=== PATIENT | female | born 1935 | race Caucasian/White ===

== ENCOUNTER 2017-08-21 13:34 | Emergency (ER) | payer MEDICARE ==
[~2017-08-21] VITALS: Ht 160 cm; Wt 78.8 kg
[~2017-08-21 13:34] MED LIST: ACET-822 PO; ADVA100A INH; AMBI5TAB PO; BUPR150XL PO; CALC200C CHEW; FEMA2.5T PO; GLIP5TAB8 PO; GLUC500C6 PO; GLUCTAB PO; HYDR-3583 PO; IBUP-232 PO; LOTE20TA PO; LYRI200C PO; MIRA50TA PO; MULT-65 PO; OMEGCAP PO; PERC7.5T13 PO
[2017-08-21 13:37] VITALS: BP 212/110; PULSE 103; RESP 18; TEMP 97.8; O2SAT 97
[2017-08-21] MEDS ORDERED: LIDOCAINE VISCOUS 2% SOLN 15 ML UDC PO ONE (14:15)
[2017-08-21] MEDS ORDERED: ALUMINUM/MAGNESIUM/SIMETH 30 ML CUP PO ONE (14:15)
[2017-08-21] MEDS ORDERED: DEXAMETHASONE SOD PHOS 4 MG/ML VIAL IM ONE (14:15)
[2017-08-21] MEDS ORDERED: RESP: ALBUTEROL 2.5 MG/3 ML NEB (SCH) INH ONE (14:15)
[2017-08-21] MEDS ORDERED: ALBU6.7H INH (15:04)
[2017-08-21] MEDS ORDERED: BENZ100 PO (15:04)
[2017-08-21] MEDS ORDERED: GAVISUS PO (15:04)
[2017-08-21] MEDS ORDERED: GUAI100S5 PO (15:04)
--- NOTE | 2017-08-21 15:04 | PD ---
HPI Chief Complaint: Respiratory Symptoms Time Seen by Provider: 13:45 Travel History International Travel<30 days: No Contact w/Intl Traveler<30days: No Traveled to known affect area: No History of Present Illness HPI 81 yo female c/o non-productive cough, subjective fever and rhinorrhea for 8 days. She took Azithromycin which did not help. Prednisone did not help. no sick contacts. No chest pain or shortness of breath. severity moderate. PFSH Past Medical History Arthritis: Yes Asthma: Yes Anxiety: No Depression: No Cancer: Yes (breast MASS REMOVED JANUARY 2014) Cardiac Catheterization: Yes (1979) Cardiovascular Problems: Yes High Cholesterol: Yes Chemotherapy: No Chest Pain: Yes Congestive Heart Failure: Yes COPD: No Cerebrovascular Accident: No Diabetes: Yes Patient Takes Glucophage: Yes Diminished Hearing: No Endocrine: Yes Gastrointestinal Disorders: Yes GERD: Yes Glaucoma: No Genitourinary: Yes Hepatitis: No Hiatal Hernia: No Hypertension: Yes Immune Disorder: No Implanted Vascular Access Dvce: Yes Kidney Stones: No Medical other: Yes (GERD; ARTHRITIS) Musculoskeletal: Yes Neurologic: Yes Psychiatric: No Reproductive: No Respiratory: Yes Immunizations Current: Yes Migraines: No Myocardial Infarction: No Radiation Therapy: Yes (FEBRUARY-MARCH 2014) Renal Failure: No Seizures: No Sleep Apnea: No Thyroid Disease: Yes Ulcer: No Menopausal: Yes : 5 Para: 4 Past Surgical History Body Medical Devices: back hardware Cardiac Surgery: No Cholecystectomy: Yes Coronary Artery Bypass Graft: Yes Endocrine Surgery: No Eye Surgery: Yes (andreas cataract surgery) Genitourinary Surgery: Yes (rectal tear repair) Gynecologic Surgery: Yes (tumor removed from vaginal wall which was benign) Hysterectomy: Yes Neurologic Surgery: Yes (LUMBAR LAMINECTOMY) Oral Surgery: Yes (tonsilectomy) Pacemaker: No Thoracic Surgery: No Tonsillectomy: Yes Other Surgery: Yes (partial thyroidectomy, BILATERAL MASTECTOMY,LEFT LUMPECTOMY ) Family History Family Myocardial Infarction: Yes Social History Alcohol Use: No ( ) Tobacco Use: No (NEVER) Substance Use: No Allergies-Medications (Allergen,Severity, Reaction): Coded Allergies: amoxicillin (Unverified Allergy, Severe, Nausea/Vomiting, 08/21/17) clavulanic acid (Unverified Allergy, Severe, Nausea/Vomiting, 08/21/17) Reported Meds & Prescriptions Reported Meds & Active Scripts Active Gaviscon Liq (Aluminum Hydroxide-Mag Carb Liq) 95-358 Mg/15 Ml Susp 15-30 Ml PO QID PRN 7 Days Maximum 120 mL/24 hrs. Proventil Hfa 6.7 GM Inh (Albuterol Sulfate) 90 Mcg/Act Aer 2 Puff INH Q4-6H PRN Guaifenesin-Codeine Liq 100-10 Mg/5 Ml Soln 10 Ml PO Q6H PRN 5 Days Tessalon Perles (Benzonatate) 100 Mg Cap 100 Mg PO TID PRN Reported Lotensin (Benazepril HCl) 20 Mg Tab 20 Mg PO DAILY Ambien (Zolpidem Tartrate) 5 Mg Tab 5 Mg PO HS PRN Calcium/Vitamin D3 Gummies (Calcium Phosphate-Cholecalciferol) 200-200 Mg-Unit Chew 2 Tab CHEW BID Glucosamine-Chondroitin D 500-400 mg (Glucosamine-Chondroitin) 1 Cap Cap 1 Cap PO DAILY Tylenol Extra Strength (Acetaminophen) 500 Mg Tablet 1 Tab PO Q4-6H Femara (Letrozole) 2.5 Mg Tab 5 Mg PO DAILY Advair Diskus Inh (Fluticasone-Salmeterol Inh) 100-50 Mcg/Blist Aer 1 Puff INH BID Rinse mouth after use. Glipizide 5 Mg Tab 5 Mg PO BIDAC Take 30 minutes before a meal Hydrocodone-Acetaminophen 10-325 mg Tab 1 Tab PO Q4H PRN Glucophage XR (Metformin HCl) 500 Mg Karolina 500 Mg PO BID With evening meal Myrbetriq (Mirabegron) 50 Mg Tab 50 Mg PO DAILY Multi-Vitamin Daily (Multiple Vitamin) 1 Tab Tab 1 Tab PO DAILY [place]-3 Fish Oil/Vitamin (Fish Oil-Cholecalciferol) 1,000-1,000 Mg Cap 1 Cap PO DAILY Lyrica (Pregabalin) 200 Mg Cap 200 Mg PO DAILY Review of Systems Except as stated in HPI: all other systems reviewed are Neg Physical Exam Narrative GENERAL: 81 yo F, NAD, pleasant SKIN: Warm and dry. HEAD: Atraumatic. Normocephalic. EYES: Pupils equal and round. No scleral icterus. No injection or drainage. ENT: No nasal bleeding or discharge. Mucous membranes pink and moist. NECK: Trachea midline. No JVD. CARDIOVASCULAR: Regular rate and rhythm. RESPIRATORY: No accessory muscle use. Clear to auscultation. Breath sounds equal bilaterally. GASTROINTESTINAL: Abdomen soft, non-tender, nondistended. Hepatic and splenic margins not palpable. MUSCULOSKELETAL: Extremities without clubbing, cyanosis, or edema. No obvious deformities. NEUROLOGICAL: Awake and alert. No obvious cranial nerve deficits. Motor grossly within normal limits. Five out of 5 muscle strength in the arms and legs. Normal speech. PSYCHIATRIC: Appropriate mood and affect; insight and judgment normal. Data Data Last Documented VS Vital Signs Date Time Temp Pulse Resp B/P (MAP) Pulse Ox O2 Delivery O2 Flow Rate FiO2 08/21/17 15:20 89 16 142/93 (109) 95 21 08/21/17 13:50 Room Air 08/21/17 13:37 97.8 VS reviewed Orders Orders Albuterol Neb (Albuterol Neb) (08/21/17 14:15) Dexamethasone Inj (Decadron Inj) (08/21/17 14:15) Al-Mag Hy-Si 40-40-4 Mg/Ml Liq (Mag-Al P (08/21/17 14:15) Lidocaine 2% Viscous (Xylocaine 2% Visco (08/21/17 14:15) Ed Discharge Order (08/21/17 15:04) MDM Medical Decision Making Medical Screen Exam Complete: Yes Emergency Medical Condition: Yes Differential Diagnosis pna, influenza, uri, allergies Narrative Course albuterol and gi cocktail helped scripts as below Diagnosis Primary Impression: Cough Referrals: Primary Care Physician call for appointment Med/Other Pt SpecificInfo: Prescription(s) given Scripts Aluminum Hydroxide-Mag Carb Liq (Gaviscon Liq) 95-358 Mg/15 Ml Susp 15-30 ML PO QID Y for HEARTBURN for 7 Days, ML 0 Refills Maximum 120 mL/24 hrs. Prov: Riley Underwood MD 08/21/17 Albuterol 6.7 GM Inh (Proventil Hfa 6.7 GM Inh) 90 Mcg/Act Aer 2 PUFF INH Q4-6H Y for SHORTNESS OF BREATH, #1 INHALER 0 Refills Prov: Riley Underwood MD 08/21/17 Guaifenesin-Codeine Liq (Guaifenesin-Codeine Liq) 100-10 Mg/5 Ml Soln 10 ML PO Q6H Y for COUGH for 5 Days, #1 BOTTLE 0 Refills Prov: Riley Underwood MD 08/21/17 Benzonatate (Tessalon Perles) 100 Mg Cap 100 MG PO TID Y for COUGH, #12 CAP 0 Refills Prov: Riley Underwood MD 08/21/17 Disposition: 01 DISCHARGE HOME Condition: Stable Riley Underwood MD Aug 21, 2017 15:04
[2017-08-21 15:20] VITALS: BP 142/93
== END 2017-08-21 15:21 | disposition home or self-care (01) ==
LOC: PHED 13:34
DX: R05 Cough (principal); R50.9 Fever, unspecified; J34.89 Other specified disorders of nose and nasal sinuses; M19.90 Unspecified osteoarthritis, unspecified site; F41.9 Anxiety disorder, unspecified; E78.00 Pure hypercholesterolemia, unspecified; I11.0 Hypertensive heart disease with heart failure; I50.9 Heart failure, unspecified; E11.9 Type 2 diabetes mellitus without complications
CPT/HCPCS: 94664; 96372; 99284; J1100; J7613

== ENCOUNTER 2017-11-02 17:49 | Emergency (ER) | payer MEDICARE ==
[~2017-11-02] VITALS: Ht 160 cm; Wt 77.0 kg
[~2017-11-02 17:49] MED LIST changes: +ALBU6.7H INH; +BENZ100 PO; -BUPR150XL PO; +GAVISUS PO; +GUAI100S5 PO; -IBUP-232 PO; -PERC7.5T13 PO
[2017-11-02 17:56] VITALS: BP 185/103; PULSE 102; RESP 16; TEMP 97.7; O2SAT 96
[2017-11-02] MEDS ORDERED: SODIUM CHLOR 0.9% 1000 ML INJ 1,000 ML IV SCH (18:31)
[2017-11-02] MEDS ORDERED: FAMOTIDINE 20 MG/2 ML VIAL IV PUSH ONE (18:45)
[2017-11-02] MEDS ORDERED: MORPHINE SULFATE 4 MG/ML INJ IV PUSH ONE (18:45)
[2017-11-02] MEDS ORDERED: SODIUM CHLORIDE 0.9% FLUSH 10 ML FLUSH IV FLUSH PRN (18:45)
[2017-11-02] MEDS ORDERED: ONDANSETRON HCL 4 MG/2 ML VIAL IVP ONE (18:45)
[2017-11-02 19:20] VITALS: BP 191/102; PULSE 95; RESP 17; O2SAT 95
[2017-11-02 19:35] LABS: AUTOMATED NEUTROPHIL # 3.9 TH/MM3 (1.8-7.7); BASOPHIL % 0.7 % (0.0-2.0); EOSINOPHIL # 0.1 TH/MM3 (0-0.4); EOSINOPHIL % 2.1 % (0.0-4.0); HEMATOCRIT 40.2 % (35.0-46.0); HEMOGLOBIN 13.1 GM/DL (11.6-15.3); LYMPH % 31.8 % (9.0-44.0); LYMPHOCYTE # 2.1 TH/MM3 (1.0-4.8); MEAN CELL VOLUME 80.9 FL (80.0-100.0); MEAN CORPUSCULAR HEMOGLOBIN 26.3 PG (27.0-34.0); MEAN CORPUSCULAR HGB CONC 32.5 % (32.0-36.0); MEAN PLATELET VOLUME 10.3 FL (7.0-11.0); MONO % 9.1 % (0.0-8.0); MONOCYTE # 0.6 TH/MM3 (0-0.9); NEUT % 56.3 % (16.0-70.0); PLATELET COUNT 196 TH/MM3 (150-450); RED BLOOD COUNT 4.97 MIL/MM3 (4.00-5.30); RED CELL DISTRIBUTION WIDTH 15.4 % (11.6-17.2); WHITE BLOOD COUNT 6.7 TH/MM3 (4.0-11.0)
[2017-11-02 19:42] LABS: CHLORIDE 103 MEQ/L (98-107); SODIUM (NA) 137 MEQ/L (136-145)
--- NOTE | 2017-11-02 19:42 | RADRPT ---
EXAM DATE/TIME: 11/02/2017 18:54 [facility] COMPARISON: RIBS RIGHT(W PA CXR MIN 3VWS), June 14, 2017, 20:08. INDICATIONS : Pain post fall. MEDICAL HISTORY : None. SURGICAL HISTORY : None. ENCOUNTER: Initial ACUITY: 1 week PAIN SCORE: 10/10 LOCATION: Right Knee. FINDINGS: There are mild arthritic changes. There is no significant joint effusion. No acute fracture is seen. There is atherosclerotic plaquing in the distal superficial femoral, the popliteal and tibial vessels . CONCLUSION: 1. Mild tricompartmental osteoarthritis. Riley Keita MD on November 02, 2017 at 19:38 Board Certified Radiologist. This report was verified electronically.
[2017-11-02 19:45] LABS: CALCIUM 9.3 MG/DL (8.5-10.1)
[2017-11-02 19:46] LABS: ALBUMIN 3.5 GM/DL (3.4-5.0); BICARBONATE 26.1 MEQ/L (21.0-32.0); BLOOD UREA NITROGEN 16 MG/DL (7-18); GLUCOSE,RANDOM 143 MG/DL (74-106)
[2017-11-02 19:48] LABS: INTERNATIONAL NORMALIZED RATIO 1.1 RATIO; PROTHROMBIN TIME - PATIENT 10.7 SEC (9.8-11.6)
[2017-11-02 19:49] LABS: ALT (GPT) 19 U/L (10-53); AST (GOT) 21 U/L (15-37); CREATININE 0.89 MG/DL (0.50-1.00); GLOMERULAR FILTRATION RATE 61 ML/MIN (>89)
[2017-11-02 19:50] LABS: TOTAL BILIRUBIN ADULT 0.3 MG/DL (0.2-1.0)
[2017-11-02 19:52] LABS: ALKALINE PHOSPHATASE 55 U/L (45-117)
[2017-11-02] MEDS ORDERED: IOHEXOL 350 MG/ML 10 ML VIAL (for RAD DIAG) IVCONTRAST ONE (20:12)
--- NOTE | 2017-11-02 20:42 | RADRPT ---
EXAM DATE/TIME: 11/02/2017 20:07 [facility] COMPARISON: No previous studies available for comparison. INDICATIONS : Abdominal pain, flu like symptoms, diarrhea. IV CONTRAST: 100 cc Omnipaque 350 (iohexol) IV ORAL CONTRAST: No oral contrast ingested. RADIATION DOSE: 18.12 CTDIvol (mGy) MEDICAL HISTORY : Cardiovascular disease. Hypercholesterolemia. Hypertension.GERD,CHF SURGICAL HISTORY : Cholecystectomy. Hysterectomy.Tonsillectomy.Laminectomy, rectal tear repair. ENCOUNTER: Initial ACUITY: 1 day PAIN SCALE: 8/10 LOCATION: Bilateral lower quadrant upper quadrant TECHNIQUE: Volumetric scanning of the abdomen and pelvis was performed. Using automated exposure control and ad justment of the mA and/or kV according to patient size, radiation dose was kept as low as reasonably achievable to obtain optimal diagnostic quality images. DICOM format image data is available electro nically for review and comparison. FINDINGS: Breast augmentation noted. Minimal basilar atelectasis. There is mild fatty liver. There is intrahepatic and extrahepatic delivery ductal dilatation the comm on bile but measure up to 1.9 cm. There is previous cholecystectomy. No CT findings for choledocholit hiasis. Small splenic cysts. Adrenals, kidneys and pancreas demonstrate no acute findings. No free fluid. No bowel obstruction. Adenopathy. There is colonic diverticulosis without evidence for diverticulitis. There is fusion of the lower lumbar spine. A small hiatal hernia. Mild scoliosis. CONCLUSION: 1. Previous cholecystectomy with biliary ductal dilatation as above. This may be related to prior lavell praneeth. No CT findings for choledocholithiasis. 2. Colonic diverticulosis without evidence for diverticulitis. 3. No obstruction, free fluid or free air. Inflammatory changes identified within the abdomen and pel vis. Saurabh Brody MD on November 02, 2017 at 20:34 Board Certified Radiologist. This report was verified electronically.
[2017-11-02 20:59] VITALS: BP 180/105; PULSE 95; RESP 18; O2SAT 96
[2017-11-02 20:59] LABS: BILIRUBIN, URINE NEG (NEG); BLOOD, URINE NEG (NEG); GLUCOSE,URINE NEG (NEG); KETONE, URINE NEG (NEG); NITRITE,URINE NEG (NEG); PH, URINE 5.5 (5.0-8.5); URINE COLOR YELLOW (YELLW/STRAW); URINE LEUKOCYTE ESTERASE NEG (NEG)
[2017-11-02 21:03] LABS: RBC, URINE 0-3 /hpf (0-3); WBC, URINE 0-2 /hpf (0-5)
[2017-11-02] MEDS ORDERED: hydrALAZINE HCL 20 MG/ML VIAL IV PUSH ONE (21:15)
[2017-11-02] MEDS ORDERED: KETOROLAC TROMETHAMINE 30 MG/ML (IVP) VIAL IV PUSH ONE (21:15)
[2017-11-02] MEDS ORDERED: MORPHINE SULFATE 2 MG/ML INJ IV PUSH ONE (21:15)
[2017-11-02] MEDS ORDERED: PROT40TA PO (21:18)
[2017-11-02] MEDS ORDERED: ZOFR4TAB3 SL (21:18)
--- NOTE | 2017-11-02 21:18 | PD ---
HPI Chief Complaint: Cold / Flu Symptoms Time Seen by Provider: 18:24 Travel History International Travel<30 days: No Contact w/Intl Traveler<30days: No Traveled to known affect area: No History of Present Illness HPI 82-year-old female complains of abdominal pain, nausea and diarrhea. Patient states that she started having nasal congestion about a week ago. Patient started having nausea and diarrhea subsequently and poor appetite for the past week. Patient started having low abdominal cramping for the past week . Patient denies any dysuria frequency. Patient denies any vaginal discharge or bleeding. Patient states that she fell today and injured her right knee. Patient states that she has sharp pain localized to the anterior medial aspect of the right knee. Patient denies pain radiation. Patient status post cholecystectomy and hysterectomy. Patient has history of hypertension has been taking her medication as directed. PFSH Past Medical History Hx Anticoagulant Therapy: No Arthritis: Yes Asthma: Yes Anxiety: No Depression: No Cancer: Yes (breast MASS REMOVED JANUARY 2014) Cardiac Catheterization: Yes (1979) Cardiovascular Problems: Yes (HTN) High Cholesterol: Yes Chemotherapy: No Chest Pain: Yes Congestive Heart Failure: Yes COPD: No Cerebrovascular Accident: No Diabetes: Yes (DM2) Patient Takes Glucophage: Yes Diminished Hearing: No Endocrine: Yes Gastrointestinal Disorders: Yes GERD: Yes Glaucoma: No Genitourinary: Yes Hepatitis: No Hiatal Hernia: No Hypertension: Yes Immune Disorder: No Implanted Vascular Access Dvce: Yes Kidney Stones: No Medical other: Yes (GERD; ARTHRITIS) Musculoskeletal: Yes Neurologic: Yes Psychiatric: No Reproductive: No Respiratory: Yes Immunizations Current: Yes Migraines: No Myocardial Infarction: No Radiation Therapy: Yes (FEBRUARY-MARCH 2014) Renal Failure: No Seizures: No Sleep Apnea: No Thyroid Disease: Yes Ulcer: No Tetanus Vaccination: > 5 Years Influenza Vaccination: No ?: Not Menopausal: Yes : 5 Para: 4 Past Surgical History Body Medical Devices: back hardware Cardiac Surgery: No Cholecystectomy: Yes Coronary Artery Bypass Graft: Yes Endocrine Surgery: No Eye Surgery: Yes (andreas cataract surgery) Genitourinary Surgery: Yes (rectal tear repair) Gynecologic Surgery: Yes (tumor removed from vaginal wall which was benign) Hysterectomy: Yes Neurologic Surgery: Yes (LUMBAR LAMINECTOMY) Oral Surgery: Yes (tonsilectomy) Pacemaker: No Thoracic Surgery: No Tonsillectomy: Yes Other Surgery: Yes (partial thyroidectomy, BILATERAL MASTECTOMY,LEFT LUMPECTOMY ) Family History Family Myocardial Infarction: Yes Social History Alcohol Use: No ( ) Tobacco Use: No (NEVER) Substance Use: No Allergies-Medications (Allergen,Severity, Reaction): Coded Allergies: amoxicillin (Unverified Allergy, Severe, Nausea/Vomiting, 11/02/17) clavulanic acid (Unverified Allergy, Severe, Nausea/Vomiting, 11/02/17) Uncoded Allergies: CILLINS (Allergy, Severe, 11/02/17) Reported Meds & Prescriptions Reported Meds & Active Scripts Active Gaviscon Liq (Aluminum Hydroxide-Mag Carb Liq) 95-358 Mg/15 Ml Susp 15-30 Ml PO QID PRN 7 Days Maximum 120 mL/24 hrs. Proventil Hfa 6.7 GM Inh (Albuterol Sulfate) 90 Mcg/Act Aer 2 Puff INH Q4-6H PRN Reported Lotensin (Benazepril HCl) 20 Mg Tab 20 Mg PO DAILY Ambien (Zolpidem Tartrate) 5 Mg Tab 5 Mg PO HS PRN Calcium/Vitamin D3 Gummies (Calcium Phosphate-Cholecalciferol) 200-200 Mg-Unit Chew 2 Tab CHEW BID Glucosamine-Chondroitin D 500-400 mg (Glucosamine-Chondroitin) 1 Cap Cap 1 Cap PO DAILY Tylenol Extra Strength (Acetaminophen) 500 Mg Tablet 1 Tab PO Q4-6H Femara (Letrozole) 2.5 Mg Tab 5 Mg PO DAILY Advair Diskus Inh (Fluticasone-Salmeterol Inh) 100-50 Mcg/Blist Aer 1 Puff INH BID Rinse mouth after use. Glipizide 5 Mg Tab 5 Mg PO BIDAC Take 30 minutes before a meal Hydrocodone-Acetaminophen 10-325 mg Tab 1 Tab PO Q4H PRN Glucophage XR (Metformin HCl) 500 Mg Karolina 500 Mg PO BID With evening meal Myrbetriq (Mirabegron) 50 Mg Tab 50 Mg PO DAILY Multi-Vitamin Daily (Multiple Vitamin) 1 Tab Tab 1 Tab PO DAILY [place]-3 Fish Oil/Vitamin (Fish Oil-Cholecalciferol) 1,000-1,000 Mg Cap 1 Cap PO DAILY Lyrica (Pregabalin) 200 Mg Cap 200 Mg PO DAILY Review of Systems General / Constitutional: No: Fever Eyes: No: Visual changes HENT: No: Headaches Cardiovascular: No: Chest Pain or Discomfort Respiratory: No: Shortness of Breath Gastrointestinal: Positive: Nausea, Diarrhea, Abdominal Pain Genitourinary: No: Dysuria Musculoskeletal: Positive: Pain Skin: No Rash Neurologic: No: Weakness Psychiatric: No: Depression Endocrine: No: Polydipsia Hematologic/Lymphatic: No: Easy Bruising Physical Exam Narrative GENERAL: Well-nourished, well-developed patient. SKIN: Focused skin assessment warm/dry. HEAD: Normocephalic. EYES: No scleral icterus. No injection or drainage. NECK: Supple, trachea midline. No JVD or lymphadenopathy. CARDIOVASCULAR: Regular rate and rhythm without murmurs, gallops, or rubs. RESPIRATORY: Breath sounds equal bilaterally. No accessory muscle use. GASTROINTESTINAL: Abdomen soft, nondistended. Patient has moderate tenderness diffusely of the abdomen. No rebound tenderness. No mass. MUSCULOSKELETAL: No cyanosis, or edema. Patient has diffuse tenderness over anterior medial aspect of the right knee. Limited range of motion the right knee joint secondary to pain. Knee joint stable. BACK: Nontender without obvious deformity. No CVA tenderness. Neurologic exam normal. Data Data Last Documented VS Vital Signs Date Time Temp Pulse Resp B/P (MAP) Pulse Ox O2 Delivery O2 Flow Rate FiO2 11/02/17 19:20 95 17 191/102 (131) 95 Room Air 11/02/17 17:56 97.7 Orders Orders Complete Blood Count With Diff (11/02/17 18:31) Comprehensive Metabolic Panel (11/02/17 18:31) Lipase (11/02/17 18:31) Prothrombin Time / Inr (Pt) (11/02/17 18:31) Act Partial Throm Time (Ptt) (11/02/17 18:31) Urinalysis - C+S If Indicated (11/02/17 18:31) Iv Access Insert/Monitor (11/02/17 18:31) Ecg Monitoring (11/02/17 18:31) Oximetry (11/02/17 18:31) Morphine Inj (Morphine Inj) (11/02/17 18:45) Ondansetron Inj (Zofran Inj) (11/02/17 18:45) Sodium Chlor 0.9% 1000 Ml Inj (Ns 1000 M (11/02/17 18:31) Sodium Chloride 0.9% Flush (Ns Flush) (11/02/17 18:45) Famotidine Inj (Pepcid Inj) (11/02/17 18:45) Ct Abd/Pel W Iv Contrast(Rout) (11/02/17 18:31) Knee, Complete (4vws) (11/02/17 18:31) Iohexol 350 Inj (Omnipaque 350 Inj) (11/02/17 20:12) Labs Laboratory Tests Test 11/02/17 19:08 11/02/17 20:55 White Blood Count 6.7 TH/MM3 Red Blood Count 4.97 MIL/MM3 Hemoglobin 13.1 GM/DL Hematocrit 40.2 % Mean Corpuscular Volume 80.9 FL Mean Corpuscular Hemoglobin 26.3 PG Mean Corpuscular Hemoglobin Concent 32.5 % Red Cell Distribution Width 15.4 % Platelet Count 196 TH/MM3 Mean Platelet Volume 10.3 FL Neutrophils (%) (Auto) 56.3 % Lymphocytes (%) (Auto) 31.8 % Monocytes (%) (Auto) 9.1 % Eosinophils (%) (Auto) 2.1 % Basophils (%) (Auto) 0.7 % Neutrophils # (Auto) 3.9 TH/MM3 Lymphocytes # (Auto) 2.1 TH/MM3 Monocytes # (Auto) 0.6 TH/MM3 Eosinophils # (Auto) 0.1 TH/MM3 Basophils # (Auto) 0.0 TH/MM3 CBC Comment DIFF FINAL Differential Comment Prothrombin Time 10.7 SEC Prothromb Time International Ratio 1.1 RATIO Activated Partial Thromboplast Time 26.4 SEC Blood Urea Nitrogen 16 MG/DL Creatinine 0.89 MG/DL Random Glucose 143 MG/DL Total Protein 7.0 GM/DL Albumin 3.5 GM/DL Calcium Level 9.3 MG/DL Alkaline Phosphatase 55 U/L Aspartate Amino Transf (AST/SGOT) 21 U/L Alanine Aminotransferase (ALT/SGPT) 19 U/L Total Bilirubin 0.3 MG/DL Sodium Level 137 MEQ/L Potassium Level 3.8 MEQ/L Chloride Level 103 MEQ/L Carbon Dioxide Level 26.1 MEQ/L Anion Gap 8 MEQ/L Estimat Glomerular Filtration Rate 61 ML/MIN Lipase 70 U/L MDM Medical Decision Making Medical Screen Exam Complete: Yes Emergency Medical Condition: Yes Interpretation(s) Last Impressions Knee X-Ray 11/02/171830 Signed Impressions: Service Date/Time: Thursday, November 02, 2017 18:54 - CONCLUSION: 1. Mild tricompartmental osteoarthritis. Riley Keita MD 21:08 PM. CBC within normal limits. CMP within normal limits. GFR 61. UA is negative. Differential Diagnosis Differential diagnosis including viral syndrome, gastroenteritis, gastritis, PUD , pancreatitis, colitis, UTI, pyelonephritis, nephrolithiasis, knee contusion, sprain, fracture, dislocation. Narrative Course 82-year-old female with abdominal pain, nausea diarrhea and right knee injury. Normal saline solution 1 L IV bolus. Morphine 4 mg IV given. Zofran 4 mg IV. Pepcid 20 mg IV. Toradol 30 mg IV. Blayne wrap right knee. Diagnosis Primary Impression: Abdominal pain Qualified Codes: R10.30 - Lower abdominal pain, unspecified Additional Impressions: Gastroenteritis Contusion of right knee Qualified Codes: S80.01XA - Contusion of right knee, initial encounter Uncontrolled hypertension Patient Instructions: General Instructions Additional Instructions: Blayne wrap right knee. Take medications as directed. Follow-up with personal physician and coil cleaner. Return if worse. Med/Other Pt SpecificInfo: Prescription(s) given Scripts Ondansetron Odt (Zofran Odt) 4 Mg Tab 4 MG SL Q6HR Y for Nausea/Vomiting, #12 TAB 0 Refills Prov: Baljeet Meraz MD 11/02/17 Pantoprazole (Protonix) 40 Mg Tab 40 MG PO DAILY for Reflux, #30 TAB 0 Refills Prov: Baljeet Meraz MD 11/02/17 Disposition: DISCHARGE HOME Condition: Stable Baljeet Meraz MD Nov 02, 2017 21:18
[2017-11-02] MEDS ORDERED: ONDANSETRON HCL 4 MG/2 ML VIAL IV PUSH ONE (21:30)
[2017-11-02 21:31] VITALS: BP 130/73
== END 2017-11-02 21:52 | disposition home or self-care (01) ==
LOC: PHED 17:49
DX: R10.30 Lower abdominal pain, unspecified (principal); K52.9 Noninfective gastroenteritis and colitis, unspecified; S80.01XA Contusion of right knee, initial encounter; I10 Essential (primary) hypertension; W19.XXXA Unspecified fall, initial encounter; E78.00 Pure hypercholesterolemia, unspecified; E11.9 Type 2 diabetes mellitus without complications; K21.9 Gastro-esophageal reflux disease without esophagitis; E07.9 Disorder of thyroid, unspecified; J45.909 Unspecified asthma, uncomplicated; Z79.84 Long term (current) use of oral hypoglycemic drugs; Z85.3 Personal history of malignant neoplasm of breast; Z87.448 Personal history of other diseases of urinary system; Z87.39 Personal history of other diseases of the musculoskeletal system and connective tissue
CPT/HCPCS: 73564; 74177; 80053; 81001; 83690; 85025; 85610; 85730; 96361; 96374; 96375; 96376; 99285; J0360; J1885; J2270; J2405; J7030; Q9967